=== PATIENT | male | born 2005 | race Caucasian/White ===

== ENCOUNTER 2024-08-11 17:10 | Emergency (ER) | payer OTHER, SELFPAY ==
[2024-08-11 17:18] VITALS: BP 137/75; PULSE 89; TEMP 36.8; O2SAT 99; BMI 21.3
--- NOTE | 2024-08-11 17:33 | ED_ITS ---
HPI - Male Genitourinary General Chief complaint: Urogenital-Male Stated complaint: STD Time Seen by Provider: 08/11/24 17:15 Source: patient Mode of arrival: walk-in Limitations: no limitations History of Present Illness HPI Narrative: 18-year-old male presents to the emergency department for possible chlamydia. He was exposed to somebody who tested positive for and he has symptoms, namely mild penile drainage. He has had symptoms for about 2 weeks. No history of any genital skin lesions. Related Data Previous Rx's ?Medication ?Instructions ?Recorded doxycycline hyclate 100 mg capsule 100 mg PO BID 10 days #20 caps 08/11/24 Allergies Allergy/AdvReac Type Severity Reaction Status Date / Time No Known Drug Allergies Allergy Verified 08/11/24 17:23 Review of Systems ROS Narrative A ten point review of systems is negative except as noted above. PFSH PFSH Social History Little interest or pleasure in doing things: not at all Feeling down, depressed, or hopeless: not at all Exam Narrative Exam Narrative: Nurses note and vital signs reviewed and patient is not hypoxic. General: The patient appears well and in no apparent distress. Patient is resting comfortably on cart. Skin: Warm, dry, no pallor noted. There is no rash noted. Head: Normocephalic, atraumatic Eye: Normal conjunctiva, no drainage Ears, Nose, Mouth, and Throat: oral mucosa is moist. Nares patent. Cardiovascular: Regular Rate and Rhythm Respiratory: Patient is in no distress, no accessory muscle use, lungs are clear to auscultation, no wheezing, rales or rhonchi GI: Soft and nontender Musculoskeletal: No joint swelling Neurological: A&O, normal speech Psychiatric: Cooperative Constitutional Vital Signs, click to edit/add: Last Vital Signs Temp 98.2 F 08/11/24 17:18 Pulse 89 08/11/24 17:18 Resp 18 08/11/24 17:18 BP 137/75 08/11/24 17:18 Pulse Ox 99 08/11/24 17:18 O2 Del Method Room Air 08/11/24 17:18 Course Vital Signs Vital signs: Vital Signs Temperature 98.2 F 08/11/24 17:18 Pulse Rate 89 08/11/24 17:18 Respiratory Rate 18 08/11/24 17:18 Blood Pressure 137/75 08/11/24 17:18 Pulse Oximetry 99 08/11/24 17:18 Oxygen Delivery Method Room Air 08/11/24 17:18 Temperature 98.2 F 08/11/24 17:18 Pulse Rate 89 08/11/24 17:18 Respiratory Rate 18 08/11/24 17:18 Blood Pressure 137/75 08/11/24 17:18 Pulse Oximetry 99 08/11/24 17:18 Oxygen Delivery Method Room Air 08/11/24 17:18 MDM - Male Genitourinary MDM Narrative Medical decision making narrative: Urinary probes are ordered and the patient was treated with IM Rocephin and prescribed doxycycline. Treatment diagnosis and follow-up were discussed with the patient. Differential Diagnosis Differential diagnosis: Likely urethritis and other (Gonorrhea, chlamydia) Discharge Plan Discharge Chief Complaint: Urogenital-Male Clinical Impression: Urethritis Patient Disposition: Home, Self-Care Time of Disposition Decision: 17:32 Condition: Good Mode of Transportation: Private Vehicle Prescriptions / Home Meds: New doxycycline hyclate 100 mg capsule 100 mg PO BID 10 Days Qty: 20 0RF Print Language: Greenlandic Instructions: Chlamydia (ED), Sexually Transmitted Diseases (ED), Safe Sex Practices (ED) Referrals: Physician,Non-Staff, MD [Primary Care Provider] - 1 week
[2024-08-11] MEDS: CEFTRIAXONE 500 MG, WATER FOR INJECTION,STERILE 1 ML IM (17:48)
[2024-08-13 21:07] LABS: Neisseria gonorrhoeae, NAA Negative (Negative)
== END 2024-08-11 17:59 | disposition home or self-care (01) ==
PROVIDERS: Emergency Provider Emergency Medicine
DX: N34.2 Other urethritis (principal)
CPT/HCPCS: 87491; 87591; 96372; 99284; J0696

== ENCOUNTER 2024-09-07 12:50 | Emergency (ER) | payer OTHER, SELFPAY ==
[2024-09-07 12:58] VITALS: BP 142/65; PULSE 73; TEMP 36.6; O2SAT 99; BMI 22.3
--- NOTE | 2024-09-07 13:09 | XR_ITS ---
The [address] [address] Patient Name: LUIS SANDOVAL MRN: [id number] date: 2005 Sex: M Assigned Patient Location: ER Current Patient Location: Accession/Order Number: [id number] Exam Date: 09/07/2024 15:20 Report Date: 09/07/2024 17:11 At the request of: XIANG RECINOS Procedure: XR abdomen 1V EXAM: XR abdomen 1V 09/07/2024 COMPARISON STUDY: None FINDINGS: There is constipation with significant retention of stool within the large bowel. This is predominantly noted within the ascending and descending segments. Small bowel is not particularly dilated. No acute osseous abnormality. Lung bases are clear. Heart size is normal. There is no pathologic calcification or radiopaque foreign body. HISTORY: abdominal pain XR/XR abdomen 1V IMPRESSION: Constipation. Electronically authenticated by: POLO SAM Date: 09/07/2024 17:11
--- NOTE | 2024-09-07 15:24 | ED.GENADUL1 ---
HPI HPI - General Adult General Chief complaint: Abdominal Pain Stated complaint: ABDOMINAL PAIN WITH BURNING SENSATION Time Seen by Provider: 09/07/24 12:58 Source: patient Mode of arrival: walk-in History of Present Illness HPI narrative: 19-year-old male to the emergency department with chief complaint of abdominal pain yesterday. Patient reports that he had 2 minutes of cramping lower abdominal pain. It terminated on its own. He reports he had a panic attack afterwards thinking about what could have been. He reports he has had intermittent bowel movements the last 2 weeks. He believes he may be constipated. He denies any nausea or vomiting. Denies any fever, sweats, chills. He denies any dysuria, urgency, frequency, hematuria. No flank pain. He is otherwise at his baseline health. The pain has not recurred since last night. Related Data Previous Rx's ?Medication ?Instructions ?Recorded doxycycline hyclate 100 mg capsule 100 mg PO BID 10 days #20 caps 08/11/24 ondansetron 4 mg disintegrating 4 mg PO Q8H PRN nausea and 09/07/24 tablet vomiting 4 days #16 tabs polyethylene glycol 3350 17 17 g PO DAILY PRN constipation 09/07/24 gram/dose oral powder (Miralax) #238 grams Allergies Allergy/AdvReac Type Severity Reaction Status Date / Time No Known Drug Allergies Allergy Verified 08/11/24 17:23 Opioid HPI Opioid Management Most Recent Opioid Data: No Data to Display Review of Systems ROS Status of ROS 10 or more systems reviewed and unremarkable except as noted in history and below PFSH PFSH Social History Little interest or pleasure in doing things: not at all Feeling down, depressed, or hopeless: not at all Exam Narrative Exam Narrative: VITALS: I have reviewed the triage vital signs. GENERAL: Well developed, well appearing adult in no acute distress. NEURO: Alert and oriented. Moves all extremities. Face is symmetric and expressive. EYES: PERRL. No scleral icterus or conjunctival injection. No discharge. HENT: Normocephalic, atraumatic. Hearing is grossly intact. Nares grossly patent and without discharge. Mucous membranes moist. NECK: No JVD. Patient moves neck without restriction. CARDIO: Rhythm regular. Normal rate. No murmur, rub, or gallop. Pulses equal bilaterally in the upper and lower extremity. No lower extremity edema. PULM: Lungs clear to auscultation in all roman. No wheezes, rales, or rhonchi. No conversational dyspnea. No splinting, stridor, or accessory muscle use. GI/: Abdomen is soft and non-tender. Normoactive bowel sounds. EXTREMITIES: Symmetric muscle bulk. No joint swelling. No clubbing, cyanosis, or deformity. SKIN: Warm and dry. Normal turgor. No rash or lesions appreciated. PSYCH: Mood, affect, and interaction is appropriate to the setting. Constitutional Vital Signs, click to edit/add: Last Vital Signs Temp 98 F 09/07/24 12:58 Pulse 73 09/07/24 12:58 Resp 16 09/07/24 12:58 BP 142/65 H 09/07/24 12:58 Pulse Ox 99 09/07/24 12:58 O2 Del Method Room Air 09/07/24 12:58 Course Vital Signs Vital signs: Vital Signs Temperature 98 F 09/07/24 12:58 Pulse Rate 73 09/07/24 12:58 Respiratory Rate 16 09/07/24 12:58 Blood Pressure 142/65 H 09/07/24 12:58 Pulse Oximetry 99 09/07/24 12:58 Oxygen Delivery Method Room Air 09/07/24 12:58 Temperature 98 F 09/07/24 12:58 Pulse Rate 73 09/07/24 12:58 Respiratory Rate 16 09/07/24 12:58 Blood Pressure 142/65 H 09/07/24 12:58 Pulse Oximetry 99 09/07/24 12:58 Oxygen Delivery Method Room Air 09/07/24 12:58 Medical Decision Making [facility] Narrative Medical decision making narrative: Well-appearing 19-year-old male to the emergency department with an isolated case of abdominal cramping that occurred last evening. Vital stable, the patient is afebrile. His abdominal examination is benign. Suspect constipation based on the history. X-rays ordered. Patient agrees with this plan. X-rays consistent with acute constipation. MiraLAX is ordered. He reports some mild nausea during his ED visit. He was given some Zofran. Return precautions were discussed. All questions were answered. The patient was discharged home. Medical Records Medical records reviewed: Yes I reviewed the patient's medical records Imaging Data Abdominal x-ray: Radiologist's impression: ITS Impressions Abdomen X-Ray 09/07/24 13:09 IMPRESSION: Constipation. Electronically authenticated by: POLO SAM Date: 09/07/2024 14:20 Discharge Plan Discharge Chief Complaint: Abdominal Pain Clinical Impression: Constipation Patient Disposition: Home, Self-Care Time of Disposition Decision: 14:56 Condition: Good Mode of Transportation: Private Vehicle Prescriptions / Home Meds: New polyethylene glycol 3350 [Miralax] 17 gram/dose powder 17 g PO DAILY PRN (Reason: constipation) Qty: 238 0RF ondansetron 4 mg tablet,disintegrating 4 mg PO Q8H PRN (Reason: nausea and vomiting) 4 Days Qty: 16 0RF No Action doxycycline hyclate 100 mg capsule 100 mg PO BID 10 Days Qty: 20 0RF Print Language: Stateless Instructions: Constipation (ED) Additional Instructions: Call the office of your primary care doctor to arrange for follow-up within the above-stated timeframe. Your ED visit was focused on your acute issue and does not replace primary care. You should review your labs, imaging, and diagnoses from this ED visit with your primary care physician. There may be non-emergent/ incidental findings that need further evaluation. You should review your vital signs including blood pressure with your PCP. If you were prescribed medications you should discuss possible side-effects and drug interactions with your pharmacist. Call 911 or go to the nearest Emergency Department if you develop any new or worsening symptoms. Seek immediate medical attention if you develop: worsening abdominal pain, new or worsening nausea, new or worsening vomiting, new or worsening diarrhea, chest pain, shortness of breath, pain with urination, problems urinating, fever, chills, weakness, or any new or worsening symptoms. Referrals: Physician,Non-Staff, MD [Primary Care Provider] - 1 week Discharge Date/Time: 09/07/24 15:04
== END 2024-09-07 15:04 | disposition home or self-care (01) ==
PROVIDERS: Emergency Provider Student in an Organized Health Care Education/Training Program
DX: K59.00 Constipation, unspecified (principal)
CPT/HCPCS: 74018; 99283

== ENCOUNTER 2025-04-05 13:54 | Emergency (ER) | payer OTHER, SELFPAY ==
[2025-04-05 13:59] VITALS: BP 131/78; PULSE 76; TEMP 36.8; O2SAT 99; BMI 20.9
--- OUTSIDE RECORDS SUMMARY | 2025-04-05 14:03 | XMS_ITS | Clinical Summary ---
Author Organization [employer] [facility] Address [id number] [facility] [place] [address] Care Team Providers Care Telephone Technician Name Role Phone Unavailable Primary Care Provider Unavailabl e Social History Tobacco Use Types Packs/Day Years Used Date Smoking Tobacco: Never Assessed Childcare Answer Date Recorded Childcare Unknown 03/05/2019 Employment Answer Date Recorded Employment Unknown 03/05/2019 Sex and Gender Information Value Date Recorded Sex Assigned at Not on file Legal Sex Male 12:06 PM EDT Gender Identity Not on file Sexual Orientation Not on file Plan of Treatment Not on file Medical Devices Not on file
--- NOTE | 2025-04-05 14:15 | ED_ITS ---
HPI HPI - General Adult General Stated complaint: LACERATION ALONDRA METAL Time Seen by Provider: 04/05/25 14:15 Source: patient Mode of arrival: walk-in History of Present Illness HPI narrative: The patient is a 19-year-old male who presents to the emergency department today for evaluation concerns for a laceration to his right thumb. He endorses he was moving some metal and subsequently cut the medial aspect of his right thumb vertically. Reports he is up-to-date on vaccines including tetanus. He states became concerned with the size and depth of the laceration so proceeded to the ER. Related Data Home Medications ?Medication ?Instructions ?Recorded ?Confirmed No Known Home Medications 04/05/2503/24 Allergies Allergy/AdvReac Type Severity Reaction Status Date / Time No Known Drug Allergies Allergy Verified 08/11/24 17:23 Review of Systems ROS Status of ROS 10 or more systems reviewed and unremark able except as noted in history and below PFSH PFSH Social History Little interest or pleasure in doing things: not at all Feeling down, depressed, or hopeless: not at all Exam Narrative Exam Narrative: Constituational: Awake/ alert, no apparent distress, well hydrated HENMT: normocephalic, external ears normal, moist oral mucous membranes and oropharynx normal Eyes: EOMI and conjunctivae normal Neck: ROM intact Chest: inspection of chest normal Respiratory: Normal respiratory effort MSK: ROM intact, +NVI Skin: + approx 1cm Vertical laceration to the medial aspect of the proximal phalanx of the R thumb, gross/fine motor intact. Neuro: no focal deficits Psych: mental status grossly normal Constitutional Vital Signs, click to edit/add: Last Vital Signs Temp 98.3 F 04/05/25 13:59 Pulse 76 04/05/25 13:59 Resp 16 04/05/25 13:59 BP 131/78 04/05/25 13:59 Pulse Ox 99 04/05/25 13:59 O2 Del Method Room Air 04/05/25 13:59 Course Vital Signs Vital signs: Vital Signs Temperature 98.3 F 04/05/25 13:59 Pulse Rate 76 04/05/25 13:59 Respiratory Rate 16 04/05/25 13:59 Blood Pressure 131/78 04/05/25 13:59 Pulse Oximetry 99 04/05/25 13:59 Oxygen Delivery Method Room Air 04/05/25 13:59 Temperature 98.3 F 04/05/25 13:59 Pulse Rate 76 04/05/25 13:59 Respiratory Rate 16 04/05/25 13:59 Blood Pressure 131/78 04/05/25 13:59 Pulse Oximetry 99 04/05/25 13:59 Oxygen Delivery Method Room Air 04/05/25 13:59 Medical Decision Making MDM Narrative Medical decision making narrative: The patient is a well-appearing 19-year-old male who presented to the emergency department today for evaluation concerns for a laceration to his right thumb. Initial examination without a concerning neurovascular motor findings on exam. No foreign bodies or evidence of wound infection present. Historically patient is up-to-date on tetanus. Wound care provided. Subsequent wound closure and hemostasis treated with placement of sutures. Please see procedure note for details. Discussed this with the patient clued recommendations for supportive care finger laceration and suture care. Advised on recommendations for suture removal. Discussed signs and symptoms of any worsening condition including infection and when to consider reevaluation by the emergency department. Patient verbalized an understanding of this and is agreeable to plan to be discharged home. Medical Records Medical records reviewed: Yes I reviewed the patient's medical records Discharge Plan Discharge Clinical Impression: Finger laceration Patient Disposition: Home, Self-Care Prescriptions / Home Meds: No Action No Known Home Medications Print Language: Macedonian Instructions: Finger Laceration (ED) Additional Instructions: Clean and dry. May cover with Vaseline or bacitracin and a dry dressing for the next 48 hours. Recommend suture removal in 7 days. Monitor for any signs and symptoms of infection as discussed. Follow with your primary care provider for reevaluation as needed. May return to the ER with any concerns at any time. Referrals: Physician,Non-Staff, MD [Primary Care Provider] - 1 week Procedures ED Laceration Laceration Laceration 1: Site: hand Side (if applicable): right (thumb) Size (cm): 1 Description: linear Depth: simple, single layer Anesthetic used: lidocaine 1% Anesthesia technique: local infiltration Amount (ml): 3 Pre-repair: wound explored and irrigated extensively Skin layer closed with: other (prolene) Size (cm): 5-0 Number of sutures: 2 Technique: simple, interrupted Additional comments: Wound approximation. Patient tolerated well. Remains neurovascularly intact
[2025-04-05] MEDS: LIDOCAINE HCL 1% 100 MG/10 ML MDV 5 ML INJ (14:20)
== END 2025-04-05 14:37 | disposition home or self-care (01) ==
PROVIDERS: Emergency Provider Emergency Medicine
DX: S61.011A Laceration without foreign body of right thumb without damage to nail, initial encounter (principal); W45.0XXA Nail entering through skin, initial encounter
CPT/HCPCS: 12001; 99284

== ENCOUNTER 2025-07-20 15:25 | Emergency (ER) | payer OTHER, SELFPAY ==
[2025-07-20 15:31] VITALS: BP 139/70; PULSE 74; TEMP 36.9; O2SAT 99; BMI 22.3
--- OUTSIDE RECORDS SUMMARY | 2025-07-20 15:34 | XMS_ITS | Clinical Summary ---
Author Organization [facility] [facility] Address [id number] [address] 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
--- OUTSIDE RECORDS SUMMARY | 2025-07-20 15:34 | XMS_ITS | Patient Health Record ---
Author Organization [facility] [place] Address [address] [place] [address] Care Team Providers Care Materials Associate Name Role Phone Arun Camacho Primary Care Provider Allergies Allergen (clinical drug ingredient) Drug/Non Drug Allergy documented on EMR Reaction Allergy Type Onset Date Status seasonal allergies (uncoded)UnknownAllergyActive Reason For Referral No Information Medications Medication SIG (Take, Route, Frequency, Duration) Notes Start Date End Date Status Triamcinolone Acetonide 0.5 % 1 applicat ion Externally Twice a day; Duration: 30 days 3Active Social History Tobacco Use: Social History Observation Description Date Details (start date - stop date) Never Smoker NA - NA Tobacco Use/Smoking Question Answer Notes Patient is a nonsmoker Problems Problem Type SNOMED Code ICD Code Onset Dates Problem Status W/U Status Risk Notes 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
--- NOTE | 2025-07-20 15:39 | XR_ITS ---
The [address] [address] Patient Name: LUIS SANDOVAL MRN: [id number] date: 2005 Sex: M Assigned Patient Location: ER Current Patient Location: ED.MAIN Accession/Order Number: [id number] Exam Date: 07/20/2025 15:57 Report Date: 07/20/2025 17:20 At the request of: MISBAH PATEL Procedure: XR hand RT min 3V 3 views of the right hand INDICATION: Pain status post injury FINDINGS: There is a minimally comminuted fracture involving middle phalanx and the distal phalanx at level of the fourth digit with intra-articular extension into the PIP joint.. Nondisplaced fracture base of the fifth metacarpal. Linear radiopaque density along the fifth digit volar PIP joint question radiopaque foreign body. XR/XR hand RT min 3V IMPRESSION: Middle and proximal phalangeal fractures of the fourth involving digit the PIP joint as well as a fracture involving the base of the fifth metacarpal. Impression dictated by: Aleks Rivera M.D. 07/20/2025 5:20 PM Dictation Location: [place] [address] Electronically authenticated by: [id number] Y Date: 07/20/2025 17:20
--- NOTE | 2025-07-20 15:39 | ED.UPPEXIN1 ---
HPI HPI - Extremity Injury (Upper) General Chief Complaint: Extremity Injury, Upper Stated Complaint: JAMMED R RING FINGER Time Seen by Provider: 07/20/25 15:32 Source: patient Mode of arrival: walk-in History of Present Illness HPI narrative: 19 year old male presents to the ED for pain to his right hand and 4th digit of the hand s/p injury today. Reports punching a wall. He has had multiple previous fractures to the 5th metacarpal, per the patient. Denies N/T. Reports decreased extension to the 4th digit due to pain. Related Data Home Medications ?Medication ?Instructions ?Recorded ?Confirmed No Known Home Medications 04/05/25 07/20/25 Allergies Allergy/AdvReac Type Severity Reaction Status Date / Time No Known Drug Allergies Allergy Verified 07/20/25 15:31 Opioid HPI Opioid Management Most Recent Pain and Opioid Data: Last Pain Scale 4 Today, 15:31 Review of Systems ROS Constitutional Denies: fever or chills Musculoskeletal Reports: extremity pain and joint pain Integumentary/Breast Denies: redness, skin pain or new lesion Neurological Denies: numbness in extremities or weakness in extremities PFSH PFSH Social History Little interest or pleasure in doing things: not at all Feeling down, depressed, or hopeless: not at all Exam Constitutional Vital Signs, click to edit/add: Last Vital Signs Temp 98.4 F 07/20/25 15:31 Pulse 74 07/20/25 15:31 Resp 16 07/20/25 15:31 BP 139/70 07/20/25 15:31 Pulse Ox 99 07/20/25 15:31 O2 Del Method Room Air 07/20/25 15:31 Common normals: no apparent distress and oriented x3 General appearance: cooperative HENMT Common normals: moist oral mucous membranes Eye Common normals: conjunctivae normal and no scleral icterus Neck & C-Spine Common normals: supple Respiratory Common normals: normal respiratory effort Effort & inspection: able to speak in complete sentences and symmetric chest movement Cardio Common normals: regular rate Peripheral pulses: radial pulses present and ulnar pulses present Extremity Other: Tenderness, swelling to 4th digit of right hand at PIP joint and just distal to the joint. Tenderness along the medial hand. Distal sensation intact. No obvious deformity noted. Pt able to move all joints of the digit. No tendernes, swelling, or deformity noted to the wrist. Neuro Common normals: oriented x3 and moves all extremities Sensorium/orientation: awake and alert Speech: speech normal Course Vital Signs Vital signs: Vital Signs Temperature 98.4 F 07/20/25 15:31 Pulse Rate 74 07/20/25 15:31 Respiratory Rate 16 07/20/25 15:31 Blood Pressure 139/70 07/20/25 15:31 Pulse Oximetry 99 07/20/25 15:31 Oxygen Delivery Method Room Air 07/20/25 15:31 Temperature 98.4 F 07/20/25 15:31 Pulse Rate 74 07/20/25 15:31 Respiratory Rate 16 07/20/25 15:31 Blood Pressure 139/70 07/20/25 15:31 Pulse Oximetry 99 07/20/25 15:31 Oxygen Delivery Method Room Air 07/20/25 15:31 MDM - Extremity Injury (Upper) MDM Narrative Medical decision making narrative: The patient declined medication for his discomfort today. X-ray showed middle and proximal phalangeal fractures of the fourth involving digit the PIP joint as well as a fracture involving the base of the fifth metacarpal. Findings were discussed with the patient and his friend/family member. An ulnar gutter splint was applied. The application was checked and was appropriate; the RUE remained NVI. Follow up with an orthopedist for a recheck, further evaluation and treatment. Splint care instructions were discussed. Return precautions were discussed. Differential Diagnosis Differential diagnosis: Likely finger sprain, fracture of hand and other (finger fracture, hand contusion.) Medical Records Attestation: I reviewed the patient's medical records. Imaging Data XR hand: Attestation: I have reviewed the pertinent imaging results. Radiologist's impression: ITS Impressions Hand X-Ray 07/20/25 15:39 IMPRESSION: Middle and proximal phalangeal fractures of the fourth involving digit the PIP joint as well as a fracture involving the base of the fifth metacarpal. Impression dictated by: Aleks Rivera M.D. 07/20/2025 5:20 PM Dictation Location: [place] [address] Electronically authenticated by: [id number] Y Date: 07/20/2025 17:20 Discharge Plan Discharge Chief Complaint: Extremity Injury, Upper Clinical Impression: Finger fracture, right, Fx metacarpal Patient Disposition: Home, Self-Care Time of Disposition Decision: 16:42 Condition: Good Mode of Transportation: Private Vehicle Prescriptions / Home Meds: No Action No Known Home Medications Print Language: Cape Verdean Instructions: Finger Fracture (ED), Hand Fracture (ED) Additional Instructions: Return to the ED for worsening symptoms. Referrals: Physician,Non-Staff, MD [Primary Care Provider] - 1 week Alex Arechiga MD [Physician, Orthopedics] - 1 week Discharge Date/Time: 07/20/25 17:42
== END 2025-07-20 17:42 | disposition home or self-care (01) ==
PROVIDERS: Emergency Provider Emergency Medicine
DX: S62.316A Displaced fracture of base of fifth metacarpal bone, right hand, initial encounter for closed fracture (principal); S62.624A Displaced fracture of middle phalanx of right ring finger, initial encounter for closed fracture; W22.01XA Walked into wall, initial encounter
CPT/HCPCS: 29125; 73130; 99283